=== PATIENT | female | born 1950 | race Caucasian/White ===

== ENCOUNTER 2022-06-10 17:18 | Inpatient (IN) | payer OTHER, MEDICAID ==
[~2022-06-10] VITALS: Ht 165.1 cm; Wt 107.2 kg
[~2022-06-10 17:18] MED LIST: ASPI81CH43 PO; ENAL2.5T11 PO; ESCI20TA PO; PHE100C PO; PHEN32.44 PO; ROSU40TA PO; ZIPR40CA8 PO
[2022-06-10 20:35] LABS: Basophils # (auto) 0 10 ^3/uL (0-0.2); Basophils % (auto) 0.4 % (0.0-2.0); Eosinophils # (auto) 0.2 10 ^3/uL (0-0.8); Eosinophils % (auto) 1.6 % (0.0-7.0); Hematocrit 38.5 % (36.0-46.0); Hemoglobin 12.7 g/dL (12.2-16.2); Lymphocytes # (auto) 3.1 10 ^3/uL (0.4-5.4); Lymphocytes % (auto) 30.8 % (10.0-50.0); Mean Corpuscular Hemoglobin 31.2 pg (28.0-32.0); Mean Corpuscular Hgb Conc. 32.9 g/dL (32.0-36.0); Mean Corpuscular Volume 94.9 fL (80.0-100.0); Monocytes # (auto) 0.8 10 ^3/uL (0-1.3); Monocytes % (auto) 7.7 % (0.0-12.0); Neutrophils % (auto) 59.5 % (37.0-80.0); Red Blood Cells 4.06 10^6/uL (4.0-5.20); Red Cell Distribution Width 13.8 % (11.8-14.3); White Blood Cell 10.1 10^3/uL (4.4-10.8)
[2022-06-10 20:43] LABS: Potassium 4.3 mmol/L (3.5-5.1)
[2022-06-10 20:44] LABS: Albumin 3.1 g/dL (3.4-5.0); Calcium 8.3 mg/dL (8.5-10.1)
[2022-06-10 20:48] LABS: BUN/Creatinine Ratio 31.7; Bilirubin, Total 0.2 mg/dL (0.2-1.0); Total Protein 6.4 g/dL (6.4-8.2)
[2022-06-10] MEDS ORDERED: SODIUM CHLORIDE 0.9% 1,000 ML IV ONE (23:00)
[2022-06-11] MEDS ORDERED: ACETAMINOPHEN 325 MG TAB PO PRN (04:15)
[2022-06-11] MEDS ORDERED: ONDANSETRON HCL 4 MG/2 ML VIAL IV PRN (04:15)
[2022-06-11] MEDS ORDERED: NITROGLYCERIN 0.4 MG SL TAB SL PRN (04:15)
[2022-06-11] MEDS ORDERED: MORPHINE SULFATE INJ 2 MG/ml SYRG IV PRN (04:15)
[2022-06-11] MEDS: PHENobarbital 32.4 MG TAB PO SCH ×3 (06:24→21:56)
[2022-06-11] MEDS: ASPirin 81 mg TAB PO SCH (10:10)
[2022-06-11] MEDS: ENOXAPARIN SOD 40 MG/0.4 ML SYRINGE SC SCH (10:10)
[2022-06-11 11:44] LABS: Alcohol, Urine < 3.0 mg/dL (0-10); Amphetamine Screen, Urine NEGATIVE (NEGATIVE); Barbiturate Scree,Urine POSITIVE (NEGATIVE); Benzodiazephine Screen, Urine NEGATIVE (NEGATIVE); Cannabinoid Screen, Urine NEGATIVE (NEGATIVE); Cocaine Screen, Urine NEGATIVE (NEGATIVE); Opiate Scree,Urine NEGATIVE (NEGATIVE); Phencyclidine Screen, Urine NEGATIVE (NEGATIVE)
[2022-06-11 12:33] LABS: Urine Bacteria FEW /hpf (None Seen); Urine Blood 1+ /uL (Negative); Urine Specific Gravity 1.018 (1.001-1.035); Urine WBC 126 /hpf (0 - 5); Urine WBC Clumps PRESENT /hpf (None Seen)
[2022-06-11] MEDS ORDERED: SODIUM CHLORIDE 0.9% 1,000 ML IV ONE (13:00)
[2022-06-11] MEDS: HYDROcodone-ACET 5/325MG TAB PO PRN ×2 (14:38→21:54)
[2022-06-11 21:40] VITALS: BP_SYST 104; BP_SYST 118; BP_SYST 125; BP_DIAS 61; BP_DIAS 65; BP_DIAS 68
[2022-06-11] MEDS ORDERED: PHENYTOIN SODIUM 100 MG CAP PO SCH (22:00)
[2022-06-12] VITALS (9 sets, daily range): BP systolic 96–129; BP diastolic 48–69
[2022-06-12 06:08] LABS: Basophils # (auto) 0 10 ^3/uL (0-0.2); Basophils % (auto) 0.5 % (0.0-2.0); Eosinophils # (auto) 0.2 10 ^3/uL (0-0.8); Eosinophils % (auto) 1.8 % (0.0-7.0); Hematocrit 39.4 % (36.0-46.0); Hemoglobin 13.2 g/dL (12.2-16.2); Lymphocytes # (auto) 2.7 10 ^3/uL (0.4-5.4); Lymphocytes % (auto) 30.9 % (10.0-50.0); Mean Corpuscular Hemoglobin 31.5 pg (28.0-32.0); Mean Corpuscular Hgb Conc. 33.4 g/dL (32.0-36.0); Mean Corpuscular Volume 94.1 fL (80.0-100.0); Monocytes # (auto) 0.7 10 ^3/uL (0-1.3); Monocytes % (auto) 7.8 % (0.0-12.0); Neutrophils # (auto) 5.2 10 ^3/uL (1.6-8.6); Red Blood Cells 4.19 10^6/uL (4.0-5.20); Red Cell Distribution Width 13.1 % (11.8-14.3); White Blood Cell 8.9 10^3/uL (4.4-10.8)
[2022-06-12 06:25] LABS: Calcium 8.2 mg/dL (8.5-10.1); Potassium 4.2 mmol/L (3.5-5.1)
[2022-06-12] MEDS: PHENobarbital 32.4 MG TAB PO SCH ×3 (06:34→21:28)
[2022-06-12] MEDS: ASPirin 81 mg TAB PO SCH (09:42)
[2022-06-12] MEDS: ENOXAPARIN SOD 40 MG/0.4 ML SYRINGE SC SCH (09:42)
[2022-06-12] MEDS ORDERED: cefTRIAXone 1GM/50ML D5W 50 ML IV ONE (15:30)
[2022-06-12] MEDS: HYDROcodone-ACET 5/325MG TAB PO PRN (17:55)
[2022-06-12] MEDS ORDERED: LORazepam 2MG/ML-1ML VIAL IV PRN (21:15)
[2022-06-12] MEDS: MUPIROCIN 2% OINT 15gm or 22gm FOR MRSA NARES EACHNOSTRI SCH (21:28)
[2022-06-12] MEDS: levETIRAcetam 500 MG TAB PO SCH (21:29)
[2022-06-13] VITALS (7 sets, daily range): BP systolic 99–112; BP diastolic 43–83
[2022-06-13] MEDS: PHENobarbital 32.4 MG TAB PO SCH ×3 (05:10→21:40)
[2022-06-13] MEDS: levETIRAcetam 500 MG TAB PO SCH ×2 (08:51→21:40)
[2022-06-13] MEDS: ASPirin 81 mg TAB PO SCH (08:51)
[2022-06-13] MEDS: cefTRIAXone 1GM/50ML D5W 50 ML IV SCH (08:52)
[2022-06-13] MEDS: ENOXAPARIN SOD 40 MG/0.4 ML SYRINGE SC SCH (08:52)
[2022-06-13] MEDS: MUPIROCIN 2% OINT 15gm or 22gm FOR MRSA NARES EACHNOSTRI SCH ×2 (10:39→22:36)
[2022-06-13] MEDS: HYDROcodone-ACET 5/325MG TAB PO PRN (17:59)
[2022-06-14 05:30] VITALS: BP 114/56
[2022-06-14] MEDS: PHENobarbital 32.4 MG TAB PO SCH ×3 (06:24→21:45)
[2022-06-14 08:00] VITALS: BP 133/55
[2022-06-14 09:00] VITALS: BP 133/55
[2022-06-14] MEDS: cefTRIAXone 1GM/50ML D5W 50 ML IV SCH (09:15)
[2022-06-14] MEDS: ENOXAPARIN SOD 40 MG/0.4 ML SYRINGE SC SCH (09:16)
[2022-06-14] MEDS: ASPirin 81 mg TAB PO SCH (09:16)
[2022-06-14] MEDS: levETIRAcetam 500 MG TAB PO SCH ×2 (09:16→21:45)
[2022-06-14] MEDS: MUPIROCIN 2% OINT 15gm or 22gm FOR MRSA NARES EACHNOSTRI SCH ×2 (11:20→22:00)
[2022-06-14] MEDS ORDERED: POLYETHYLENE GLYCOL 17 GM PWDR PO PRN (14:45)
[2022-06-14 17:00] VITALS: BP 93/51
[2022-06-14] MEDS: HYDROcodone-ACET 5/325MG TAB PO PRN (17:21)
[2022-06-14 20:00] VITALS: BP 128/44
[2022-06-14 22:00] VITALS: BP 122/59
[2022-06-15 05:00] VITALS: BP 123/63
[2022-06-15] MEDS: PHENobarbital 32.4 MG TAB PO SCH ×2 (06:33→14:31)
[2022-06-15 08:15] VITALS: BP 118/59
[2022-06-15] MEDS: cefTRIAXone 1GM/50ML D5W 50 ML IV SCH (08:54)
[2022-06-15 08:58] VITALS: BP 118/59
[2022-06-15] MEDS: ENOXAPARIN SOD 40 MG/0.4 ML SYRINGE SC SCH (09:37)
[2022-06-15] MEDS: levETIRAcetam 500 MG TAB PO SCH (09:37)
[2022-06-15] MEDS: ASPirin 81 mg TAB PO SCH (09:37)
[2022-06-15] MEDS: HYDROcodone-ACET 5/325MG TAB PO PRN (09:38)
[2022-06-15] MEDS: MUPIROCIN 2% OINT 15gm or 22gm FOR MRSA NARES EACHNOSTRI SCH (09:38)
[2022-06-15 12:43] VITALS: BP 119/59
[2022-06-15 16:58] VITALS: BP 155/78
[2022-06-15 17:16] VITALS: BP 155/78
== END 2022-06-15 19:40 | DRG 872 ==
LOC: EDBD 17:18 → ER 17:18 → TELE 06-11 04:15 → CENTRAL 06-11 20:51 → TELE-CENTR 06-11 20:55 → CENTRAL 06-15 19:06
PROVIDERS: ADMIT Nurse Practitioner; ATTEND Internal Medicine
DX: A41.9 Sepsis, unspecified organism (principal); I50.32 Chronic diastolic (congestive) heart failure; N39.0 Urinary tract infection, site not specified; G40.909 Epilepsy, unspecified, not intractable, without status epilepticus; E66.01 Morbid (severe) obesity due to excess calories; E78.5 Hyperlipidemia, unspecified; F20.9 Schizophrenia, unspecified; I11.0 Hypertensive heart disease with heart failure; I44.0 Atrioventricular block, first degree; B96.20 Unspecified Escherichia coli [E. coli] as the cause of diseases classified elsewhere; Z20.822 Contact with and (suspected) exposure to COVID-19; F32.A Depression, unspecified; I65.21 Occlusion and stenosis of right carotid artery; R00.1 Bradycardia, unspecified; R47.81 Slurred speech; M79.89 Other specified soft tissue disorders; R55 Syncope and collapse; Z88.8 Allergy status to other drugs, medicaments and biological substances; Z79.899 Other long term (current) drug therapy; Z98.2 Presence of cerebrospinal fluid drainage device; Z88.5 Allergy status to narcotic agent; Z86.73 Personal history of transient ischemic attack (TIA), and cerebral infarction without residual deficits; Z68.39 Body mass index [BMI] 39.0-39.9, adult
CPT/HCPCS: 36415; 70450; 70486; 70551; 71045; 72125; 76881; 80048; 80053; 80185; 80307; 81001; 82550; 82607; 82746; 84443; 84484; 85025; 87040; 87081; 87086; 87088; 87186; 93005; 93306; 93886; 95819; 96360; 97116; 97163; 97530; G0378; J0696

== ENCOUNTER 2024-01-09 10:12 | Emergency (ER) | payer OTHER, MEDICAID ==
[~2024-01-09] VITALS: Ht 172.7 cm; Wt 136.3 kg
[2024-01-09 10:12] VITALS: BP 135/65; RESP 15; O2SAT 96
[~2024-01-09 10:12] MED LIST changes: +ENAL1TAB43 PO; -ENAL2.5T11 PO; -PHE100C PO; +PHEN1CAP60 PO; -ROSU40TA PO; +ROSU40TA81 PO
[2024-01-09 10:29] VITALS: PULSE 68
[2024-01-09] MEDS ORDERED: ACETAMINOPHEN 500 MG TAB PO ONE (10:45)
[2024-01-09 11:21] LABS: Alanine Aminotransferase 16 U/L (7-40); Albumin 3.9 g/dL (3.2-4.8); Alkaline Phosphatase 137 U/L (46-116); Anion Gap 3 (5-15); Aspartate Aminotransferase 21 U/L (13-40); BUN/Creatinine Ratio 15.9 (10.0-20.0); Blood Urea Nitrogen 14 mg/dL (9-23); Calcium 9.1 mg/dL (8.7-10.4); Carbon Dioxide 31 mmol/L (20-30); Chloride 104 mmol/L (98-107); Glucose 95 mg/dL (74-106); Lipase 31 U/L (12-53); Potassium 4.7 mmol/L (3.5-5.1); Sodium 138 mmol/L (136-145)
[2024-01-09 11:22] LABS: Bilirubin, Total 0.2 mg/dL (0.2-1.0); Total Protein 6.6 g/dL (5.7-8.2)
[2024-01-09 11:28] LABS: Basophils # (auto) 0.1 10 ^3/uL (0-0.2); Basophils % (auto) 0.5 % (0.0-2.0); Eosinophils # (auto) 0.1 10 ^3/uL (0-0.8); Eosinophils % (auto) 1.1 % (0.0-7.0); Hematocrit 39.8 % (36.0-46.0); Hemoglobin 13.8 g/dL (12.2-16.2); Lymphocytes % (auto) 29.6 % (10.0-50.0); Mean Corpuscular Hemoglobin 32.7 pg (28.0-32.0); Mean Corpuscular Hgb Conc. 34.7 g/dL (32.0-36.0); Monocytes # (auto) 0.7 10 ^3/uL (0-1.3); Monocytes % (auto) 6.7 % (0.0-12.0); Neutrophils # (auto) 6.3 10 ^3/uL (1.6-8.6); Neutrophils % (auto) 62.1 % (37.0-80.0); Red Blood Cells 4.23 10^6/uL (4.0-5.20); Red Cell Distribution Width 14.2 % (11.8-14.3); White Blood Cell 10.1 10^3/uL (4.4-10.8)
== END 2024-01-09 17:38 | disposition left against medical advice (07) ==
LOC: EDBD 10:12 → ER 10:12
DX: R07.9 Chest pain, unspecified (principal); E78.5 Hyperlipidemia, unspecified; Z88.6 Allergy status to analgesic agent
CPT/HCPCS: 36415; 80053; 83605; 83690; 83880; 84484; 85025; 93005